=== PATIENT | female | born 1990 | race Caucasian/White ===

== ENCOUNTER 2016-08-28 03:21 | Inpatient (IN) | payer MEDICAID ==
[2016-08-28] VITALS (13 sets, daily range): BP systolic 103–145; BP diastolic 60–86; PULSE 72–97; RESP 18; TEMP 97.8–98
[~2016-08-28 03:21] MED LIST: FERR325T PO; PRENTAB60 PO
[2016-08-28] MEDS ORDERED: LACTATED RINGER'S 1000 ML INJ 1,000 ML IV PRN (03:51)
[2016-08-28] MEDS ORDERED: LACTATED RINGER'S 1000 ML INJ 1,000 ML IV SCH (03:51)
--- NOTE | 2016-08-28 03:59 | PD ---
HPI Chief Complaint Contractions Date Seen: Aug 28, 2016 Travel History International Travel<30 Days: No Contact w/Intl Traveler<30Days: No History of Present Illness HPI Ms. Gates is a [address] Chiang at ~39 2/7 weeks GA (DAVID 2016) who presented with complaint of contractions. Patient states that her contractions began at approximately 1 AM; she denies vaginal bleeding or loss of vaginal fluid. Patient states that contractions quickly intensified, that she currently rates her pain with contractions at 20/10 in severity. Patient reports contractions occurring every 3-5 minutes. Patient denies other symptoms such as shortness of breath, chest pain, nausea/vomiting, dysuria, calf pain/swelling. Per review of records, patient is GBS negative. Patient with recent anemia on 08/21 labs: Hemoglobin 7.4. Patient with recent elevated urine protein/ creatinine ratio. Patient with elevated 1 hour O'[place] testing; 3 hour glucose test was not obtained Para: 2 : 5 History Past Medical History Narrative Medical Anemia during Gestational hypertension with prior gestation Obstetric History Obstetric History Past Surgical History Surgical History: No Previous Surgery Family History Family History: Negative Social History Alcohol Use: No Tobacco Use: No Substance Abuse: No Allergies-Medications (Allergen,Severity, Reaction): Coded Allergies: No Known Allergies (Unverified , 08/25/16) Home Meds Active Scripts Ferrous Sulfate 325 Mg [id number] Mg PO BID #60 TAB Ref 3 Prov:Luisito Chiang MD R2 07/14/16 Vit W/ Docusate-Fe Fu ( 19)1 Tab Tab1 Tab PO DAILY #90 TAB Prov:Luisito Chiang MD R2 06/17/16 Review of Systems General / Constitutional: No: Fever, Chills HENT: No: Headaches Cardiovascular: No: Chest Pain or Discomfort Respiratory: No: Short of Breath Gastrointestinal: No: Nausea, Vomiting Genitourinary: No: Urgency, Dysuria Physical Exam HR 111 Respiratory 18 Temp 98.1 BP 106/47 Narrative GENERAL: Well-nourished, well-developed patient. SKIN: Warm and dry. HEAD: Normocephalic and atraumatic. EYES: No scleral icterus. No injection or drainage. ENT: No nasal drainage noted. Mucous membranes pink. Airway patent. NECK: Supple, trachea midline. No JVD. CARDIOVASCULAR: Regular rate and rhythm without murmurs RESPIRATORY: Breath sounds equal bilaterally. No accessory muscle use. ABDOMEN/GI: Abdomen soft, non-tender, bowel sounds present, no rebound, no guarding Gravid EXTREMITIES: No cyanosis or edema. NEUROLOGICAL: Awake and alert. Motor and sensory function grossly within normal limits. GENITOURINARY: External Genitalia: intact and normal in appearance Cervix: Dilatation: 8 Effacement: 100% Station: 0 Presentation: V Membranes: Intact Uterine Contractions: Y q2min FHT's: Category: 1 Baseline: 150 Reactive: Y Variability: Moderate Decels: None Data Data Orders Ob (2e) Additional Admit Info (08/28/16 03:51) Admit To Inpatient (08/28/16 ) Vital Signs (Adult) .Per protocol (08/28/16 03:51) ^ Heart (08/28/16 03:51) ^ Amnioinfusion (08/28/16 03:51) Diet Npo (08/28/16 Breakfast) Lactated Ringer's 1000 Ml Inj (Lr 1000 M (08/28/16 03:51) Lactated Ringer's 1000 Ml Inj (Lr 1000 M (08/28/16 03:51) Sodium Chlorid 0.9% 500 Ml Inj (Ns 500 M (08/28/16 04:00) Sodium Chlor 0.9% 1000 Ml Inj (Ns 1000 M (08/28/16 04:11) Lidocaine 1% Inj (50 Ml) (Xylocaine 1% I (08/28/16 04:00) Citric Acid-Sodium Citrate Liq (Bicitra (08/28/16 04:00) Fentanyl Inj (Fentanyl Inj) (08/28/16 04:00) Fentanyl Inj (Fentanyl Inj) (08/28/16 04:00) Complete Blood Count With Diff (08/28/16 03:51) Hold Clot (08/28/16 03:51) Abo/Rh Blood Type (08/28/16 03:51) Urinalysis - C+S If Indicated (08/28/16 03:51) Resp Oxygen Non Rebreathe Mask (08/28/16 ) ^ Epidural / Intrathecal Infus (08/28/16 03:51) Oxytocin 30 Units-500ml Premix (Pitocin (08/28/16 04:00) Lidocaine 1% Inj (50 Ml) (Xylocaine 1% I (08/28/16 04:00) Light Mineral Oil (Muri-Lube Oil) (08/28/16 04:00) Inpatient Certification (08/28/16 ) MDM Medical Record Reviewed: Yes Narrative Course / MDM [address] Chiang at ~39 2/7 weeks GA (DAVID 09/02/2016) Assessment: Category 1 rhythm Cervix 8/100% effaced Contractions every 2 minutes history: Anemia, elevated protein/creatinine ratio, hyperglycemia GBS negative Plan: We'll admit for labor Start LR Continue EFM Obtain UA, CBC, blood typing We'll obtain post delivery CBC due to gestational anemia of Hgb 7.4 Refugio Malhotra MD R2 Aug 28, 2016 03:59
[2016-08-28] MEDS ORDERED: OXYTOCIN 30 UNITS-500ML PREMIX 500 ML IV ONE ×2 (04:00→05:00)
[2016-08-28] MEDS ORDERED: LIDOCAINE HCL 1% 50 ML VIAL INFIL PRN (04:00)
[2016-08-28] MEDS ORDERED: SODIUM CHLORID 0.9% 500 ML INJ 500 ML IV PRN (04:00)
[2016-08-28] MEDS ORDERED: MINERAL OIL 10 ML VIAL TOPICAL PRN (04:00)
[2016-08-28] MEDS ORDERED: LIDOCAINE HCL 1% 50 ML VIAL I-DERMAL PRN (04:00)
[2016-08-28] MEDS ORDERED: CITRIC ACID-SODIUM CITRATE LIQ 30 ML UDC PO SCH (04:00)
--- NOTE | 2016-08-28 04:01 | PD ---
HPI Chief Complaint Contractions Date Seen: Aug 28, 2016 Travel History International Travel<30 Days: No Contact w/Intl Traveler<30Days: No Known Affected Area: No History of Present Illness HPI Spaces 26-year-old white female a to 39 weeks presents complaining of contractions she is a family practice patient of Dr. rogers no bleeding or ruptured membranes, heart rate tracing reactive she is deon every 2 minutes membranes intact Para: 2 : 5 Last Menstrual Period: Aug 28, 2016 History Obstetric History Obstetric History 2 vaginal deliveries to ABs Social History Alcohol Use: No Tobacco Use: No Substance Abuse: No Allergies-Medications (Allergen,Severity, Reaction): Coded Allergies: No Known Allergies (Unverified , 08/25/16) Home Meds Active Scripts Ferrous Sulfate 325 Mg [id number] Mg PO BID #60 TAB Ref 3 Prov:Luisito Chiang MD R2 07/14/16 Vit W/ Docusate-Fe Fu ( 19)1 Tab Tab1 Tab PO DAILY #90 TAB Prov:Luisito Chiang MD R2 06/17/16 Review of Systems General / Constitutional: No: Fever, Weight Gain, Chills, Other Eyes: No: Diploplia, Blurred Vision, Visual changes, Pain, Photophobia HENT: No: Headaches, Vertigo, Lightheadedness Cardiovascular: No: Irregular Rhythm, Chest Pain or Discomfort, Palpitations, Tachycardia, Syncope, Varicosities, Edema, Cyanosis Respiratory: No: Cough, Short of Breath, Other Gastrointestinal: No: Nausea, Vomiting, Diarrhea Genitourinary: No: Decreased Urinary Output, Oliguria Musculoskeletal: No: Limited ROM, Weakness, Cramping, Edema, Pain Skin: No Rash, No Itching, No Dryness, No Lumps, No Change in Pigmentation, No Change in Nails, No Alopecia, No Lesions Neurologic: No: Weakness, Dizziness, Syncope, Focal Abnormalities, Coordination Problem, Headache, Slurred Speech, Seizures Psychiatric: No: Depression, Suicidal Ideations, Homicidal Ideation Endocrine: No: Heat Intolerance, Cold Intolerance, Polydipsia, Polyuria, Other Physical Exam Narrative GENERAL: Well-nourished, well-developed patient. SKIN: Warm and dry. HEAD: Normocephalic and atraumatic. EYES: No scleral icterus. No injection or drainage. ENT: No nasal drainage noted. Mucous membranes pink. Airway patent. NECK: Supple, trachea midline. No JVD. CARDIOVASCULAR: Regular rate and rhythm without murmurs, gallops, or rubs. RESPIRATORY: Breath sounds equal bilaterally. No accessory muscle use. BREASTS: Bilateral exam showed no masses , no retractions, no nipple discharge. ABDOMEN/GI: Abdomen soft, non-tender, bowel sounds present, no rebound, no guarding Gravid to [39-] weeks size Fundal Height: [39-] GENITOURINARY: External Genitalia: intact and normal in appearance BUS glands: [-] Cervix: [-] Dilatation: [8-] Effacement: [-90] Station: [0-] Presentation: [-vtx] Membranes: [intact ] Uterine Contractions: [reg-] FHT's: Category: [1-] Baseline: 133 Reactive: [yes-] Variability: [mod-] Decels: [-none] EXTREMITIES: No cyanosis or edema. BACK: Nontender without obvious deformity. No CVA tenderness. NEUROLOGICAL: Awake and alert. Motor and sensory grossly within normal limits. Five out of 5 muscle strength in all muscle groups. Normal speech. Data Data Orders Ob (2e) Additional Admit Info (08/28/16 03:51) Admit To Inpatient (08/28/16 ) Vital Signs (Adult) .Per protocol (08/28/16 03:51) ^ Heart (08/28/16 03:51) ^ Amnioinfusion (08/28/16 03:51) Diet Npo (08/28/16 Breakfast) Lactated Ringer's 1000 Ml Inj (Lr 1000 M (08/28/16 03:51) Lactated Ringer's 1000 Ml Inj (Lr 1000 M (08/28/16 03:51) Sodium Chlorid 0.9% 500 Ml Inj (Ns 500 M (08/28/16 04:00) Sodium Chlor 0.9% 1000 Ml Inj (Ns 1000 M (08/28/16 04:11) Lidocaine 1% Inj (50 Ml) (Xylocaine 1% I (08/28/16 04:00) Citric Acid-Sodium Citrate Liq (Bicitra (08/28/16 04:00) Fentanyl Inj (Fentanyl Inj) (08/28/16 04:00) Fentanyl Inj (Fentanyl Inj) (08/28/16 04:00) Complete Blood Count With Diff (08/28/16 03:51) Hold Clot (08/28/16 03:51) Abo/Rh Blood Type (08/28/16 03:51) Urinalysis - C+S If Indicated (08/28/16 03:51) Resp Oxygen Non Rebreathe Mask (08/28/16 ) ^ Epidural / Intrathecal Infus (08/28/16 03:51) Oxytocin 30 Units-500ml Premix (Pitocin (08/28/16 04:00) Lidocaine 1% Inj (50 Ml) (Xylocaine 1% I (08/28/16 04:00) Light Mineral Oil (Muri-Lube Oil) (08/28/16 04:00) Inpatient Certification (08/28/16 ) MDM Interpretation(s) 26-year-old white female A2 at 39 weeks with regular contractions active labor no rupture the membranes no bleeding patient's family practice patient of Dr. Luisito Chiang Plan Plan is admission labor management and anticipate vaginal delivery and rather precipitous fashion Diagnosis Diagnosis: Primary Impression: Precipitate labor, antepartum Condition: Stable Santy Alvarenga II, MD Aug 28, 2016 04:01
[2016-08-28 04:06] LABS: AUTOMATED NEUTROPHIL # 8.4 TH/MM3 (1.8-7.7); BASOPHIL % 0.2 % (0.0-2.0); EOSINOPHIL # 0.1 TH/MM3 (0-0.4); EOSINOPHIL % 0.8 % (0.0-4.0); HEMATOCRIT 23.6 % (35.0-46.0); LYMPH % 17.8 % (9.0-44.0); LYMPHOCYTE # 2.1 TH/MM3 (1.0-4.8); MEAN CELL VOLUME 61.9 FL (80.0-100.0); MEAN CORPUSCULAR HEMOGLOBIN 19.3 PG (27.0-34.0); MEAN CORPUSCULAR HGB CONC 31.2 % (32.0-36.0); NEUT % 72.2 % (16.0-70.0); PLATELET COUNT 195 TH/MM3 (150-450); RED BLOOD COUNT 3.82 MIL/MM3 (4.00-5.30); RED CELL DISTRIBUTION WIDTH 18.7 % (11.6-17.2); WHITE BLOOD COUNT 11.6 TH/MM3 (4.0-11.0)
[2016-08-28 04:09] LABS: HEMO FLAGS AUTO DIFF
[2016-08-28] MEDS ORDERED: SODIUM CHLOR 0.9% 1000 ML INJ 1,000 ML IV PRN (04:11)
--- NOTE | 2016-08-28 04:29 | PD.LABORPN ---
Subjective Subjective OB attending delivery note This patient to multiparous patient at 39 weeks delivered over an intact perineum a macrosomic male infant 4850 g 8/ 9, placenta delivered spontaneously intact delivery performed by the family physician did a good job there were no complications EBL 200 cc, mother and baby doing well Objective Objective Santy Alvarenga II, MD Aug 28, 2016 04:29
[2016-08-28] MEDS ORDERED: MISOPROSTOL 200 MCG TAB ONE (04:33)
[2016-08-28 04:35] LABS: BACTERIA, URINE RARE /hpf; BLOOD, URINE SMALL (NEG); GLUCOSE,URINE NEG (NEG); KETONE, URINE NEG (NEG); MUCUS URINE FEW /lpf (OCC); NITRITE,URINE NEG (NEG); PH, URINE 6.5 (5.0-8.5); RENAL EPITHELIAL CELLS 1 /hpf; SQUAMOUS EPITHELIAL CELL URINE 14 /hpf (0-5); TRANSITIONAL EPI CELLS, URINE <1 /hpf; URINE COLOR YELLOW (YELLW/STRAW)
[2016-08-28 04:36] LABS: COMMENT (UR) CULTURE INDICATED; CULTURE IF INDICATED CULTURE INDICATED
[2016-08-28 04:43] LABS: BLOOD GAS BASE EXCESS 1.2 mmol/L (-2-2); BLOOD GAS O2 HGB SATURATION 9 % (90-100); CORD BLOOD GAS HCO3 28 mmol/L (21-29); CORD BLOOD GAS PCO2 70 mmHg (34-78); CORD BLOOD GAS PH 7.23 (7.14-7.42); CORD BLOOD GAS PO2 9 mmHG
[2016-08-28 04:44] LABS: DRAW SITE CORD BLOOD; STAT YES
--- NOTE | 2016-08-28 04:48 | PD.OB.DELI ---
Anesthesia: None Episiotomy: None Vaginal Delivery: Normal Presentation: Occiput anterior Nuchal Cord: None Delayed cord clamping (45 sec): Yes Shoulder Dystocia: Suprapubic pressure given, Jailene maneuver done Infant: Male One Minute : 8 Five Minute : 9 Infant Care: Suctioned, Spontaneous crying, Responded to stimulation, Blow-by O2 delivered Placenta: Spontaneous delivery, Intact, Cord pH (Cord pH from cord section was 7.23 ) Laceration: No lacerations Additional Information Mei is a healthy 26 y/o G3 now P3 with gestational diabetes mellitus, failing her 1-hr GTT. She also had iron deficiency anemia of with a recent hgb of 7.4 during the third trimester. GBS negative. She presented to L&D at 8 cm dilated and deon regularly. The baby was deliver, but needed Jailene maneuver/positioning and Suprapubic pressure. The perineum was intact except for small superficial lacerations at 1 o/clock and on the labia minora at 11 o'clock position. 400 mcg of Cytotec were administered rectally for EBL of 300-400 ml with a slow steady trickle of blood approximately 20-30 minutes after delivery. The uterus was firm and oxytocin was also administered. Weight: 10 lb [address] Alvarenga, and Dr. Malhotra. Luisito Chiang MD R2 Aug 28, 2016 04:48
[2016-08-28] MEDS ORDERED: MISOPROSTOL 200 MCG TAB PR ONE (05:00)
[2016-08-28] MEDS ORDERED: SODIUM CHLORIDE 0.9% FLUSH 5 ML FLUSH IV PRN (05:00)
[2016-08-28] MEDS ORDERED: DOCUSATE SODIUM 50 MG/SENNA 8.6 MG TAB PO PRN (05:00)
[2016-08-28] MEDS ORDERED: WITCH HAZEL 50%/GLYCERIN 12.5% 40 PAD JAR TOPICAL PRN (05:00)
[2016-08-28] MEDS ORDERED: BENZOCAINE 20% TOPICAL SPRAY 60 ML CAN TOPICAL PRN (05:00)
[2016-08-28] MEDS ORDERED: ACETAMINOPHEN 325 MG TAB PO PRN (05:00)
[2016-08-28] MEDS ORDERED: ALUMINUM/MAGNESIUM/SIMETH 30 ML CUP PO PRN (05:00)
[2016-08-28] MEDS ORDERED: ZOLPIDEM TARTRATE 5 MG TAB PO PRN (05:00)
[2016-08-28] MEDS ORDERED: ONDANSETRON ODT 4 MG TAB PO PRN (05:00)
[2016-08-28 05:01] LABS: ACANTHOCYTES OCC (NORMAL); OVALOCYTES 1+ (NORMAL)
[2016-08-28 05:02] LABS: PLATELET ESTIMATE SMEAR NORMAL (NORMAL); PLATELET MORPHOLOGY NORMAL (NORMAL); SCAN/DIFF AUTO DIFF CONFIRMED
[2016-08-28 05:04] LABS: POLYCHROMASIA 2.4 % (0.0-1.9)
[2016-08-28] MEDS ORDERED: SODIUM CHLORIDE 0.9% FLUSH 5 ML FLUSH IV SCH (09:00)
[2016-08-28] MEDS: FERROUS SULFATE 325 MG (65 MG ELEMENTAL IRON) TAB PO SCH ×2 (09:20→20:15)
[2016-08-28] MEDS: IBUPROFEN 600 MG TAB PO PRN ×2 (09:21→15:40)
[2016-08-28 11:56] LABS: AUTOMATED NEUTROPHIL # 11.9 TH/MM3 (1.8-7.7); BASOPHIL # 0.1 TH/MM3 (0-0.2); BASOPHIL % 0.5 % (0.0-2.0); EOSINOPHIL % 0.1 % (0.0-4.0); LYMPHOCYTE # 1.3 TH/MM3 (1.0-4.8); MEAN CELL VOLUME 62.4 FL (80.0-100.0); MEAN CORPUSCULAR HEMOGLOBIN 19.2 PG (27.0-34.0); MEAN CORPUSCULAR HGB CONC 30.7 % (32.0-36.0); MONO % 7.2 % (0.0-8.0); NEUT % 83.2 % (16.0-70.0); PLATELET COUNT 155 TH/MM3 (150-450); RED BLOOD COUNT 3.13 MIL/MM3 (4.00-5.30); RED CELL DISTRIBUTION WIDTH 18.9 % (11.6-17.2); WHITE BLOOD COUNT 14.2 TH/MM3 (4.0-11.0)
[2016-08-28 11:59] LABS: HEMO FLAGS AUTO DIFF
[2016-08-28 12:01] LABS: HEMATOCRIT 19.5 % (35.0-46.0)
[2016-08-28 12:29] LABS: ACANTHOCYTES OCC (NORMAL)
[2016-08-28 12:30] LABS: PLATELET ESTIMATE SMEAR LOW (NORMAL); PLATELET MORPHOLOGY ENLARGED (NORMAL); SCAN/DIFF AUTO DIFF CONFIRMED
--- NOTE | 2016-08-28 12:38 | HHI.OB ---
Subjective Post Day: 0 Remarks Patient CBC notable for H&H 6/19.5 today at approx 11am, a decrease from antepartum H&H (7.4/23.1). She states she has no symptoms, specifically denying headache, CP, SOB, dizziness. She has gotten up and walked around without symptoms. She is without difficulty. VS documented most recently 120/72, pulse 90, afebrile 97.8F. Patient declines the option of blood products at this time. She endorses only light vaginal bleeding. Notably, patient has chronic anemia and took prenatals with iron during the . She had significant anemia with her previous as well. ( Sandra Lyles MD R1) Objective Vitals/I&O Vital Signs Date Time Temp Pulse Resp B/P Pulse Ox O2 Delivery O2 Flow Rate FiO2 08/28/16 09:00 97.8 90 18 120/72 08/28/16 06:00 92 118/61 08/28/16 05:45 72 115/66 08/28/16 05:35 18 08/28/16 05:30 91 136/79 08/28/16 05:16 98.0 18 08/28/16 05:15 86 120/60 08/28/16 05:05 18 08/28/16 05:01 89 123/65 08/28/16 04:45 95 103/86 08/28/16 04:36 97 145/79 Objective Remarks GENERAL: Well-nourished, well-developed female. Minimal conjunctival pallor, CARDIOVASCULAR: Regular rate and rhythm without murmurs, gallops, or rubs. RESPIRATORY: Breath sounds equal bilaterally. No accessory muscle use. ABDOMEN/GI: Abdomen soft, non-tender. Fundus: Firm, non-tender at umbilicus. GENITOURINARY: Light to moderate bleeding. EXTREMITIES: No cyanosis or edema, non-tender, without signs of DVT. Pulse 2+ in extremities. Medications and IVs Current Medications Medications (Trade) Dose Ordered Sig/Buster Route Start Time Stop Time Status Last Admin (NS Flush) 2 ml BID IV 08/28/16 09:00 (NS Flush) 2 ml UNSCH PRN IV 08/28/16 05:00 (Tylenol) 650 mg Q4H PRN PO 08/28/16 05:00 (Motrin) 600 mg Q6H PRN PO 08/28/16 05:00 08/28/16 09:21 (Americaine 20% Top Spr) 1 spray Q4H PRN TOPICAL 08/28/16 05:00 (Tucks Pads) 1 applic QID PRN TOPICAL 08/28/16 05:00 (Sheba-Colace) 2 tab Q12H PRN PO 08/28/16 05:00 08/28/16 09:20 (Ambien) 5 mg HS PRN PO 08/28/16 05:00 (M-M-R Ii Inj) 0.5 ml ONCE ONCE SQ 08/28/16 16:00 08/28/16 16:01 (Boostrix Inj) 0.5 ml ONCE ONCE IM 08/28/16 16:00 08/28/16 16:01 (Mag-Al Plus Susp Liq) 15 ml Q8H PRN PO 08/28/16 05:00 (Zofran Odt) 4 mg Q6H PRN PO 08/28/16 05:00 (Ferrous Sulfate) 325 mg BID PO 08/28/16 09:00 08/28/16 09:20 (Sandra Lyles MD R1) Assessment/Plan Assessment and Plan day #0. H&H 6/19.5 and patient asymptomatic. Patient declines PRBCs at this time given no symptoms. Hemodynamically stable without evidence of significant source of blood loss. Plan: recheck H&H now to monitor if stable. If decreased or if patient becomes symptomatic, will re-address possibility of 1-2 units of PRBCs with patient. SDW Dr. Leonel Sosa (Sandra Lyles MD R1) Attestation Patient very tolerant of anemia. H/o chronic anemia on iron during . Will continue to watch, transfuse if needed. (Martina Sosa MD) Sandra Lyles MD R1 Aug 28, 2016 12:38 Martina Sosa MD Aug 28, 2016 16:41
[2016-08-28 14:09] LABS: HEMATOCRIT 20.9 % (35.0-46.0)
[2016-08-28] MEDS ORDERED: MEASLES, MUMPS, RUBELLA VACCINE 0.5 ML VIAL SQ ONE (16:00)
[2016-08-28] MEDS ORDERED: DIPHTH/TETANUS/ACEL PERTUSSIS (BOOSTER) 0.5 ML VIAL/PFS IM ONE (16:00)
[2016-08-28 20:12] LABS: REVIEW FLAG FINAL
[2016-08-28 20:15] LABS: HEMATOCRIT 19.1 % (35.0-46.0)
[2016-08-29 05:14] LABS: MEAN CELL VOLUME 62.7 FL (80.0-100.0); MEAN CORPUSCULAR HEMOGLOBIN 18.9 PG (27.0-34.0); MEAN CORPUSCULAR HGB CONC 30.2 % (32.0-36.0); PLATELET COUNT 156 TH/MM3 (150-450); RED BLOOD COUNT 3.27 MIL/MM3 (4.00-5.30); RED CELL DISTRIBUTION WIDTH 19.1 % (11.6-17.2); WHITE BLOOD COUNT 11.7 TH/MM3 (4.0-11.0)
[2016-08-29 05:24] LABS: REVIEW FLAG FINAL
[2016-08-29 05:29] LABS: HEMATOCRIT 20.5 % (35.0-46.0)
[2016-08-29 08:00] VITALS: BP 119/70; PULSE 91; RESP 18; TEMP 98.1
--- NOTE | 2016-08-29 08:42 | HHI.OB ---
Subjective Post Day: 1 Remarks 26 y/o G3 now P3, delivered at 39.2 weeks gestation via . complicated by GDM, and iron deficiency anemia. Overall she is feeling well. Denies SOB or chest pain. Walking without difficulty. Breast feeding without difficulty. Bleeding is "light" ----- less than period with no clots. (Luisito Chiang MD R2) Objective Vitals/I&O Vital Signs Date Time Temp Pulse Resp B/P Pulse Ox O2 Delivery O2 Flow Rate FiO2 08/28/16 18:25 18 08/28/16 15:15 18 08/28/16 09:00 97.8 90 18 120/72 Objective Remarks GENERAL: Well-nourished, well-developed female. Minimal conjunctival pallor, CARDIOVASCULAR: Regular rate and rhythm without murmurs, gallops, or rubs. RESPIRATORY: Breath sounds equal bilaterally. No accessory muscle use. ABDOMEN/GI: Abdomen soft, non-tender. Fundus: Firm, non-tender at umbilicus. GENITOURINARY: Light to moderate bleeding. EXTREMITIES: No cyanosis or edema, non-tender, without signs of DVT. Pulse 2+ in extremities. Medications and IVs Current Medications Medications (Trade) Dose Ordered Sig/Buster Route Start Time Stop Time Status Last Admin (NS Flush) 2 ml BID IV 08/28/16 09:00 08/28/16 20:15 (NS Flush) 2 ml UNSCH PRN IV 08/28/16 05:00 (Tylenol) 650 mg Q4H PRN PO 08/28/16 05:00 (Motrin) 600 mg Q6H PRN PO 08/28/16 05:00 08/28/16 15:40 (Americaine 20% Top Spr) 1 spray Q4H PRN TOPICAL 08/28/16 05:00 (Tucks Pads) 1 applic QID PRN TOPICAL 08/28/16 05:00 (Sheba-Colace) 2 tab Q12H PRN PO 08/28/16 05:00 08/28/16 09:20 (Ambien) 5 mg HS PRN PO 08/28/16 05:00 (Mag-Al Plus Susp Liq) 15 ml Q8H PRN PO 08/28/16 05:00 (Zofran Odt) 4 mg Q6H PRN PO 08/28/16 05:00 (Ferrous Sulfate) 325 mg BID PO 08/28/16 09:00 08/28/16 20:15 (Luisito Chiang MD R2) Assessment/Plan Problem List: (1) Vaginal delivery Assessment and Plan day #1 . H&H stable at 6.2/19.5 and patient asymptomatic. Patient declines PRBCs at this time given no symptoms. Hemodynamically stable without evidence of significant source of blood loss. - AFVSS - Continue routine care - Motrin PRN pain - Encourage OOB - Pelvic rest x 6 wks - Contraception: Perfers Depo. - Anticipate D/C today 08/29/2016. dw Dr. Sosa (Luisito Chiang MD R2) Collaborating MD Comments Patient with h/o chronic anemia during . Currently anemic but stable blood counts since yesterday and is asymptomatic. Agree with observation rather than transfusion at this time (Martina Sosa MD) Luisito Chiang MD R2 Aug 29, 2016 08:42 Martina Sosa MD Sep 02, 2016 11:40
[2016-08-29] MEDS ORDERED: IBUP-232 PO (09:00)
[2016-08-29] MEDS ORDERED: SENN1TAB PO (09:00)
--- NOTE | 2016-08-29 09:02 | HHI.DCPOC ---
Discharge Care Plan Diagnosis: (1) Intrauterine normal (2) Vaginal delivery (3) Anemia affecting Report Symptoms to Your Doctor -Temperate above 100.5 degrees -Redness, of incision or excessive or foul smelling drainage -Unusual pain or calf pain -Increased vaginal bleeding -Painful or difficulty urinating -Feelings of extreme sadness or anxiety after 2 weeks Goals to Promote Your Health * To prevent worsening of your condition and complications * To maintain your health at the optimal level Directions to Meet Your Goals Take your medications as prescribed Follow your dietary instruction Follow activity as directed Ensure plenty of rest for recovery Drink fluids for hydration Keep your appointments as scheduled Take your immunizations and boosters as scheduled If your symptoms worsen call your PCP, if no PCP go to Urgent Care Center or Emergency Room Smoking is Dangerous to Your Health. Avoid second hand smoke Call the 24-hour crisis hotline for domestic abuse at Luisito Chiang MD R2 Aug 29, 2016 09:01
[2016-08-29] MEDS: FERROUS SULFATE 325 MG (65 MG ELEMENTAL IRON) TAB PO SCH (09:20)
== END 2016-08-29 14:00 | disposition home or self-care (01) | DRG 775 ==
LOC: HOBED 03:21 → H2EA 03:52 → H1EA 08:30
PROVIDERS: ADMIT Obstetrics & Gynecology Maternal & Fetal Medicine; ATTEND Obstetrics & Gynecology Maternal & Fetal Medicine
PROC: 10E0XZZ Delivery of Products of Conception, External Approach (ICD-10-PCS; principal; 2016-08-28)
DX: O62.3 Precipitate labor (principal); O24.429 Gestational diabetes mellitus in childbirth, unspecified control; D50.9 Iron deficiency anemia, unspecified; O99.02 Anemia complicating childbirth; O36.63X0 Maternal care for excessive fetal growth, third trimester, not applicable or unspecified; O66.0 Obstructed labor due to shoulder dystocia; O70.0 First degree perineal laceration during delivery; Z3A.39 39 weeks gestation of pregnancy; Z37.0 Single live birth
CPT/HCPCS: 59025; 81001; 82805; 85014; 85018; 85025; 85027; 87086; 99285

== ENCOUNTER → 2017-11-10 | Outpatient (CLI) | payer MEDICAID ==
[~2017-11-10] MED LIST changes: +IBUP-232 PO; +SENN1TAB PO
== END ==
LOC: HPND 12:36
PROVIDERS: ATTEND Family Medicine
DX: Z36.82 Encounter for antenatal screening for nuchal translucency (principal)
CPT/HCPCS: 36415; 76813

== ENCOUNTER → 2017-12-16 | Outpatient (CLI) | payer MEDICAID | LOC: HPND 10:37 | PROVIDERS: ATTEND Family Medicine | DX: Z36.3 Encounter for antenatal screening for malformations (principal) | CPT/HCPCS: 76805 ==

== ENCOUNTER 2018-05-17 07:56 | Inpatient (IN) ==
--- NOTE | 2018-05-17 08:47 | ED ---
History of Present Illness Primary Care Physician: Rosalia Escalona MD Chief Complaint: contractions History of Present Illness: 28 yr old female at 40/5 WGA presenting to ED with contractions that started this morning at 5 am. Pt is feeling baby move well, no gush of fluid, no bleeding but minimal spotting, regular contractions. No complications during this . No history of smoking, or drinking. No medical conditions or medications. Mom would like an epidural if pain increases. GBS status negative per mom. Review of Systems Constitutional: Denies fever(s) Ears, Nose, Mouth, and Throat: Denies headache(s) Cardiovascular: Denies chest pain, Denies shortness of breath Gastrointestinal: Denies abdominal pain Genitourinary: Reports other (Contractions) PMFSH - Medical / Surgical Hx Neg / Unobtainable Medical Problems Denied: Yes Surgical History: No Previous Surgery - Social History I have reviewed the patient's Social History: Yes - Tobacco History Second Hand Smoke Exposure: No Tobacco Use In Past 30 Days: No Smoking Status: Never smoker - Alcohol History How Often Do You Have a Drink Containing Alcohol: Never - Substance Use History Substance History: No History of Abuse Medications and Allergies Allergies Allergy/AdvReac Type Severity Reaction Status Date / Time No Known Allergies Allergy Uncoded 08/25/16 15:16 Home Medications Medication Instructions Recorded Confirmed Type PO DAILY 05/17/18 History Exam Vital signs: Vital Signs 05/17/18 08:30 Temperature 98.4 F Pulse Rate 89 Respiratory Rate 18 Blood Pressure 134/79 Narrative: GENERAL: Well-nourished, well-developed patient. SKIN: Warm and dry. HEAD: Normocephalic and atraumatic. EYES: No scleral icterus. No injection or drainage. ENT: No nasal drainage noted. Mucous membranes pink. Airway patent. CARDIOVASCULAR: Regular rate and rhythm without murmurs, gallops, or rubs. RESPIRATORY: Breath sounds equal bilaterally. No accessory muscle use. ABDOMEN/GI: Abdomen soft, non-tender, bowel sounds present, no rebound, no guarding GENITOURINARY: External Genitalia: intact and normal in appearance Cervix: anterior Dilatation: 3-4 cm Effacement: 80% Station: -3 Presentation: vertex Membranes: intact Uterine Contractions: present FHT's: Category: 1 Baseline: 155 Reactive: yes Variability: present Decels: absent EXTREMITIES: No cyanosis or edema. BACK: Nontender without obvious deformity. No CVA tenderness. NEUROLOGICAL: Awake and alert. Normal speech. Results - Labs CBC & Chem 7: 05/17/18 08:55 Assessment and Plan - Diagnosis (1) Third trimester Code(s): Z34.93 - Encounter for supervision of normal , unspecified, third trimester Status: Acute - Plan 28 yr at 40/5 WGA presenting w/ contractions. Plan: Cervix 3-4/80/-2 Unsure of epidural GBS negative uncomplicated - Admit to L&D - Anticipate vaginal delivery - Attending Attestation The exam, history, and the medical decision-making described in the above note were completed with the assistance of the resident physician. I reviewed and agree with the findings presented. I attest that I had a [id number] encounter with the patient on the same day, and personally performed and documented my assessment and findings in the medical record. Visibly uncomfortable contractions in term multip SOOL FHT cat I initial SVE by nursing staff Wants to try without epidural. GBS-, no other complications Will admit for labor management. Discharge Plan - Physicians Team Primary Care Provider: Rosalia Escalona Attending Provider: Luisito Chiang
[2018-05-17] MEDS ORDERED: Oxytocin 30 Units/500ml Premix 30 UNITS/500 ML BAG IV.SIG ONE (08:48)
[2018-05-17] MEDS ORDERED: Naloxone Inj 0.4 MG/ML Vial IV.PUSH PRN ×2 (08:48→11:15)
[2018-05-17] MEDS ORDERED: fentaNYL Citrate Inj 100 MCG/2 ML Ampul IV.PUSH PRN ×2 (08:48)
[2018-05-17] MEDS ORDERED: Sod Chloride 0.9% Inj 1,000 ML IV.CONT PRN (08:48)
[2018-05-17] MEDS ORDERED: Sodium Chlor 0.9% Inj 500 ML IV.SIG PRN (08:48)
[2018-05-17] MEDS ORDERED: Citric Acid/Sodium Citrate Liq 30 ML UDC PO SCH (09:00)
--- NOTE | 2018-05-17 09:08 | P.HPOB ---
Patient Name: Rosina Gates Date of : 89 Patient Status: Emergency Emergency Provider: DaphneTatyana Date: 05/17/18 08:47 Initialization Date: 05/17/18 08:47 History of Present Illness Primary Care Physician: Rosalia Escalona MD Chief Complaint: contractions History of Present Illness: 28 yr old female at 40/5 WGA presenting to ED with contractions that started this morning at 5 am. Pt is feeling baby move well, no gush of fluid, no bleeding but minimal spotting, regular contractions. No complications during this . No history of smoking, or drinking. No medical conditions or medications. Mom would like an epidural if pain increases. GBS status negative per mom. Review of Systems Constitutional: Denies fever(s) Ears, Nose, Mouth, and Throat: Denies headache(s) Cardiovascular: Denies chest pain, Denies shortness of breath Gastrointestinal: Denies abdominal pain Genitourinary: Reports other (Contractions) PMFSH - Medical / Surgical Hx Neg / Unobtainable Medical Problems Denied: Yes Surgical History: No Previous Surgery - Social History I have reviewed the patient's Social History: Yes - Tobacco History Second Hand Smoke Exposure: No Tobacco Use In Past 30 Days: No Smoking Status: Never smoker - Alcohol History How Often Do You Have a Drink Containing Alcohol: Never - Substance Use History Substance History: No History of Abuse Medications and Allergies Allergies Allergy/AdvReac Type Severity Reaction Status Date / Time No Known Allergies Allergy Uncoded 08/25/16 15:16 Home Medications Medication Instructions Recorded Confirmed Type PO DAILY 05/17/18 History Exam Vital signs: Vital Signs 05/17/18 08:30 Temperature 98.4 F Pulse Rate 89 Respiratory Rate 18 Blood Pressure 134/79 Narrative: GENERAL: Well-nourished, well-developed patient. SKIN: Warm and dry. HEAD: Normocephalic and atraumatic. EYES: No scleral icterus. No injection or drainage. ENT: No nasal drainage noted. Mucous membranes pink. Airway patent. CARDIOVASCULAR: Regular rate and rhythm without murmurs, gallops, or rubs. RESPIRATORY: Breath sounds equal bilaterally. No accessory muscle use. ABDOMEN/GI: Abdomen soft, non-tender, bowel sounds present, no rebound, no guarding GENITOURINARY: External Genitalia: intact and normal in appearance Cervix: anterior Dilatation: 3-4 cm Effacement: 80% Station: -3 Presentation: vertex Membranes: intact Uterine Contractions: present FHT's: Category: 1 Baseline: 155 Reactive: yes Variability: present Decels: absent EXTREMITIES: No cyanosis or edema. BACK: Nontender without obvious deformity. No CVA tenderness. NEUROLOGICAL: Awake and alert. Normal speech. Assessment and Plan - Diagnosis (1) Third trimester Code(s): Z34.93 - Encounter for supervision of normal , unspecified, third trimester Status: Acute - Plan 28 yr at 40/5 WGA presenting w/ contractions. Plan: Cervix 3-4/80/-2 Unsure of epidural GBS negative uncomplicated - Admit to L&D - Anticipate vaginal delivery
--- NOTE | 2018-05-17 09:35 | P.HPOB ---
History of Present Illness Service: Rosina is a very pleasant 28-year-old female, who is a , presenting at 40.5 weeks gestation. She presents to OB ED after waking up with severe contractions q 5-6 minutes at 0500 on 05/17/2018. She has been having periodic contractions throughout the week, but nothing of this intensity. Otherwise, feeling well. No gush of fluid still with good FM. Denies any vaginal bleeding. Trying to avoid epidural during her delivery. Primary Care Physician: Rosalia Escalona MD Chief Complaint: contractions PMFSH - Medical / Surgical Hx Neg / Unobtainable Medical Problems Denied: Yes - Medical History Medical History: Medical History (Last Updated 05/17/18 @ 10:12 by Luisito Chiang MD) Anemia - Tobacco History Second Hand Smoke Exposure: No Tobacco Use In Past 30 Days: No Smoking Status: Never smoker - Alcohol History How Often Do You Have a Drink Containing Alcohol: Never - Substance Use History Substance History: No History of Abuse Medications and Allergies Active Medications: Active Medications Citric Acid/Sodium Citrate (Sodium Citrate/Citric Acid Liq) 30 ml PO [employer] [facility] Stop: 05/21/18 08:59 Fentanyl Citrate (Fentanyl Inj) 50 mcg IV.PUSH Q1H PRN PRN Reason: Pain Scale 3 - 5 Fentanyl Citrate (Fentanyl Inj) 100 mcg IV.PUSH Q1H PRN PRN Reason: PAIN SCALE 6 TO 10 Lactated Ringer's (Lr 1000 Ml Inj) 1,000 mls @ 125 mls/hr IV.CONT .Q8H FRANCIS Lactated Ringer's (Lr 1000 Ml Inj) 1,000 mls @ 3,000 mls/hr IV.SIG UNSCH PRN PRN Reason: compromise or epidural Last Admin: 05/17/18 09:06 Dose: 3,000 mls/hr Sodium Chloride (Ns Inj) 500 mls @ 1,000 mls/hr IV.SIG UNSCH PRN PRN Reason: SEE LABEL COMMENTS Sodium Chloride (Ns Inj) 1,000 mls @ 100 mls/hr IV.CONT .Q10H PRN PRN Reason: SEE LABEL COMMENTS Lidocaine HCl (Xylocaine 1% Inj) 0.1 ml I-DERMAL PRN PRN PRN Reason: For IV start Stop: 05/20/18 08:47 Lidocaine HCl (Xylocaine 1% Inj) 10 ml INFILTRATN PRN PRN PRN Reason: For episiotomy repair Stop: 05/19/18 08:47 Mineral Oil (Muri-Lube Oil) 10 ml TOPICAL PRN PRN PRN Reason: PRN perineal massage Naloxone HCl (Narcan Inj) 0.1 mg IV.PUSH Q2M PRN PRN Reason: for opiate reversal Allergies Allergy/AdvReac Type Severity Reaction Status Date / Time No Known Allergies Allergy Uncoded 08/25/16 15:16 Home Medications Medication Instructions Recorded Confirmed Type PO DAILY 05/17/18 History Exam Vital signs: Vital Signs 05/17/18 08:30 Temperature 98.4 F Pulse Rate 89 Respiratory Rate 18 Blood Pressure 134/79 Intake & Output 05/16/18 05/17/18 05/17/18 18:59 06:59 18:59 Weight 75.75 kg Cervix: 8 cm, 80% effaced, -2 station - Constitutional no acute distress, cooperative - Routine HEENT Exam Head: Present: normocephalic, atraumatic Eye: Present: EOMI ENT: Present: mucous membranes moist, nares patent - Routine Neck Exam Present: full ROM - Routine Respiratory Exam Absent: accessory muscle use - Routine Cardiovascular Exam Present: RRR. Absent: JVD - Routine Exam Comments: 7-8 cm dilated 80% effaced -2 station, vertex. Ab consistent with 40 weeks gestation. - Routine Skin Exam Present: intact, dry, warm - Routine Neurological Exam Present: alert, oriented X3, CN II-XII intact Results - Labs CBC & Chem 7: 05/17/18 08:55 Caprini VTE Risk Assessment Caprini VTE Risk Assessment: No/Low Risk (score <= 1) (SCDs post delivery) Caprini Risk Assessment Model: Point Value = 1 Point Value = 2 Point Value = 3 Point Value = 5 Age 41-60 Minor surgery BMI > 25 kg/m2 Swollen legs Varicose veins or History of unexplained or recurrent spontaneous Oral contraceptives or hormone replacement Sepsis (< 1 month) Serious lung disease, including pneumonia (< 1 month) Abnormal pulmonary function Acute myocardial infarction Congestive heart failure (< 1 month) History of inflammatory bowel disease Medical patient at bed rest Age 61-74 Arthroscopic surgery Major open surgery (> 45 min) Laparoscopic surgery (> 45 min) Malignancy Confined to bed (> 72 hours) Immobilizing plaster cast Central venous access Age >= 75 History of VTE Family history of VTE Factor V Leiden Prothrombin [id number] Lupus anticoagulant Anticardiolipin antibodies Elevated serum homocysteine Heparin-induced thrombocytopenia Other congenital or acquired thrombophilia Stroke (< 1 month) Elective arthroplasty Hip, pelvis, or leg fracture Acute spinal cord injury (< 1 month) Prophylaxis Regimen: Total Risk Factor Score Risk Level Prophylaxis Regimen 0-1 Low Early ambulation 2 Moderate Order ONE of the following: *Sequential Compression Device (SCD) *Heparin 5000 units SQ BID 3-4 Higher Order ONE of the following medications: *Heparin 5000 units SQ TID *Enoxaparin/Lovenox 40 mg SQ daily (WT < 150 kg, CrCl > 30 mL/min) *Enoxaparin/Lovenox 30 mg SQ daily (WT < 150 kg, CrCl > 10-29 mL/min) *Enoxaparin/Lovenox 30 mg SQ BID (WT < 150 kg, CrCl > 30 mL/min) AND/OR *Sequential Compression Device (SCD) 5 or more Highest Order ONE of the following medications: *Heparin 5000 units SQ TID (Preferred with Epidurals) *Enoxaparin/Lovenox 40 mg SQ daily (WT < 150 kg, CrCl > 30 mL/min) *Enoxaparin/Lovenox 30 mg SQ daily (WT < 150 kg, CrCl > 10-29 mL/min) *Enoxaparin/Lovenox 30 mg SQ BID (WT < 150 kg, CrCl > 30 mL/min) AND *Sequential Compression Device (SCD) Assessment and Plan - Diagnosis (1) Third trimester Code(s): Z34.93 - Encounter for supervision of normal , unspecified, third trimester Status: Acute - Plan Continue with routine care. IVF running. GBS negative. Cervix 7-8 cm, 80% effaced, -2 station at 09:10 on check. Does not want epidural. VS at goal, FHT Category one Baseline 150, mod variability, +Accels. Nolan q 4-5 minutes regularly. Will do delayed cord clamping during delivery. Delivery to be assisted by Dr. Hugh Owens.
[2018-05-17 10:07] LABS: Baso % (Auto) 0.3 % (0.0-2.0); Eos % (Auto) 0.5 % (0.0-4.0); Lymph # (Auto) 1.6 th/mm3 (1.0-4.8); Lymph % (Auto) 16.9 % (9.0-44.0); Mean Corpuscular HGB Conc 33.3 % (32.0-36.0); Mean Corpuscular Hemoglobin 26.3 pg (27.0-34.0); Mean Corpuscular Volume 78.9 fL (80.0-100.0); Mean Platelet Volume 8.3 fL (7.0-11.0); Mono # (Auto) 0.9 th/mm3 (0.0-0.9); Mono % (Auto) 9.2 % (0.0-8.0); Neut # (Auto) 6.8 th/mm3 (1.8-7.7); Neut % (Auto) 73.1 % (16.0-70.0); Platelet Count 162 th/mm3 (150-450); Red Blood Count 4.19 mil/mm3 (4.00-5.30); Red Cell Distribution Width 15.9 % (11.6-17.2); White Blood Count 9.3 th/mm3 (4.0-11.0)
[2018-05-17 10:54] LABS: Lymphocytes 11 % (9-44); Monocytes 7 % (0-8); Platelet Estimate Normal (Normal); Platelet Morphology Normal (Normal); Promyelocyte 1 % (0-0)
[2018-05-17] MEDS ORDERED: Bisacodyl 10 MG Supp RECTAL PRN (11:15)
[2018-05-17] MEDS ORDERED: Benzocaine 20% Top Spray 60 ML Can TOPICAL PRN (11:15)
[2018-05-17] MEDS ORDERED: Witch Hazel 50%/Glyderin 12.5% 40 Pad Jar RECTAL PRN (11:15)
[2018-05-17] MEDS ORDERED: Oxytocin 30 Units/500ml Premix 30 UNITS/500 ML BAG IV.CONT PRN (11:15)
[2018-05-17] MEDS ORDERED: Acetaminophen 325 MG Tablet PO PRN (11:15)
--- NOTE | 2018-05-17 11:21 | P.OBDELI ---
Weeks Gestation: 40 Active Labor Start Date: 05/17/18 Active Labor Start Time: 05:00 Medical Induction of Labor: No Artificial Rupture of Membrane: Yes (clear fluid ) Artificial ROM Date: 05/17/18 Artificial ROM Time: 10:10 Anesthesia: None Episiotomy: none Vaginal Delivery: Normal Presentation: Occiput anterior Nuchal Cord: None Delayed Cord Clamping (45 sec): Yes Shoulder Dystocia: Jailene maneuver done Placenta: Spontaneous delivery, Intact, 3 vessel cord, Cord pH Laceration: None Infant: Female Additional Information: spontaneous vaginal delivery without complication at 40.5 weeks gestation. EBL 250 ml. Placenta intact. Mom and baby doing well. Supervised by Dr. Devi and Dr. Hugh Owens. Addendum: I came directly over after receiving call that she was starting to push but did not make it into delivery room until after delivery. baby being transferred to [facility] on my arrival. I did supervise third stage of labor, there were no perineal tears and no additional hemostasis measures required beyond usual active management. - Hugh Owens
[2018-05-17 11:25] LABS: Bacteria,Urine Few /hpf; Bilirubin,Urine Negative (Negative); Color,Urine Yellow (Yellw/Straw); Glucose,Urine (UA) Negative (Negative); Leukocyte Esterase,Urine Moderate (Negative); Mucus,Urine Few /lpf (Occasional); Nitrite,Urine Negative (Negative); Specific Gravity,Urine 1.008 (1.002-1.035); Squamous Epithelial Cell,Urine 12 /hpf (0-5)
[2018-05-17 11:26] LABS: Amphetamine Urine With Conf Neg (Neg); Benzodiazepine Urine With Conf Neg (Neg); Cocaine Urine With Conf Neg (Neg); Opiates Urine With Conf Neg (Neg)
[2018-05-17 11:27] LABS: Cannabinoid Urine With Conf Neg (Neg); Clarity,Urine Hazy (Clear)
[2018-05-17] MEDS ORDERED: Oxytocin 30 Units/500ml Premix 30 UNITS/500 ML BAG ONE (11:37)
[2018-05-17 14:06] LABS: Rubella IgG Antibody 31.5 IU/mL (10.0-500.0)
[2018-05-17 14:08] LABS: Hepatitits B Surface Antigen Nonreactive (Nonreactive)
[2018-05-17 14:40] LABS: Hepatitis A IgM Antibody Nonreactive (Nonreactive)
[2018-05-17] MEDS ORDERED: Diphtheria/Tetanus/Pertussis Vaccine Inj 0.5 ML Syringe IM ONE (16:00)
[2018-05-17] MEDS ORDERED: Measles/Mumps/Rubella Vaccine Inj 0.5 ML Vial SQ ONE (16:00)
[2018-05-17] MEDS ORDERED: Zolpidem Tartrate 5 MG Tablet PO PRN (21:00)
[2018-05-17] MEDS: Senna/Docusate Sodium 8.6/50 MG Tablet PO SCH (22:04)
--- NOTE | 2018-05-18 08:55 | P.PNOB ---
Subjective Post day: 1 Interval history: Feeling well. Passing gas. Breast feeding without difficulty. No vaginal bleeding. Urinating normally. Not feeling light headed. No questions. Abdominal pain well controlled. NO SOB. Objective Vital Signs/I&O: Vital Signs 05/17/18 09:50 05/17/18 11:19 05/17/18 11:45 Temperature Pulse Rate 89 101 H 81 Respiratory Rate 18 Blood Pressure 131/77 117/78 121/69 05/17/18 12:15 05/17/18 12:45 05/17/18 13:12 Temperature 97.9 F 97.9 F Pulse Rate 81 90 90 Respiratory Rate 20 2 L Blood Pressure 117/72 108/69 108/69 05/17/18 20:00 Temperature 98.1 F Pulse Rate 78 Respiratory Rate 18 Blood Pressure 101/64 Intake & Output 05/17/18 05/18/18 05/18/18 18:59 06:59 18:59 Intake Total 500 / 500 Balance 500 / 500 Weight 75.75 kg Intake: IV 500 / 500 Pitocin 30 Units/NS 500 ml 500 / 500 Premix 30 units In 500 ml @ 999 mls/hr IV.SIG BOLUS ONE Rx#: [id number] Result Diagrams: 05/17/18 08:55 Objective Remarks: GENERAL: Well-nourished, well-developed patient. CARDIOVASCULAR: Regular rate and rhythm without murmurs, gallops, or rubs. RESPIRATORY: Breath sounds equal bilaterally. No accessory muscle use. ABDOMEN/GI: Abdomen soft, non-tender. Fundus: Firm, non-tender at umbilicus. GENITOURINARY: Light to moderate bleeding. EXTREMITIES: No cyanosis or edema, non-tender, without signs of DVT. Medications and IVs: Active Medications Acetaminophen (Tylenol) 650 mg PO Q4H PRN PRN Reason: PAIN SCALE 1 TO 2 Al Hydroxide/Mg Hydroxide (Milk Of Magnesia Liq) 30 ml PO Q12H PRN PRN Reason: Mild Constipation Benzocaine (Americaine 20% [place]) 1 spray TOPICAL Q4H PRN PRN Reason: For Perineum Discomfort Bisacodyl (Dulcolax Supp) 10 mg RECTAL DAILY PRN PRN Reason: SEVERE CONSITIPATION Oxytocin (Pitocin 30 Units/Ns 500 Ml Premix) 30 units in 500 mls @ 100 mls/hr IV.CONT UNSCH PRN PRN Reason: Heavy bleeding Last Admin: 05/17/18 11:54 Dose: 100 mls/hr Ibuprofen (Motrin) 800 mg PO Q8H PRN PRN Reason: For Cramping Last Admin: 05/18/18 05:47 Dose: 800 mg Lactulose (Lactulose Liq) 30 ml PO DAILY PRN PRN Reason: SEVERE CONSITIPATION Naloxone HCl (Narcan Inj) 0.1 mg IV.PUSH Q2M PRN PRN Reason: for opiate reversal Ondansetron HCl (Zofran Odt) 4 mg PO Q6H PRN PRN Reason: NAUSEA OR VOMITING Senna/Docusate Sodium (Sheba-Colace) 1 tab PO BID FRANCIS Last Admin: 05/17/18 22:04 Dose: 1 tab Sennosides (Senokot) 17.2 mg PO Q12H PRN PRN Reason: Moderate Constipation Sodium Chloride (Ns Flush) 2 ml IV.FLUSH BID [facility] Last Admin: 05/17/18 22:04 Dose: 2 ml Sodium Chloride (Ns Flush) 2 ml IV.FLUSH PRN PRN PRN Reason: FLUSH AFTER USING IV ACCESS Witch Karlene/Glycerin (Tucks Pads) 1 applicatio RECTAL QID PRN PRN Reason: HEMORRHOIDS Zolpidem Tartrate (Ambien) 5 mg PO HS PRN PRN Reason: SLEEP Assessment and Plan - Diagnosis (1) Third trimester Code(s): Z34.93 - Encounter for supervision of normal , unspecified, third trimester Status: Acute - Plan 28 yr delivered on 05/17/2018 at 10:59 AM. Normal vaginal delivery. Recovering well. Plan: Continue routine post care. Can be discharged home today 05/18/2018, after 5 PM. VS reviewed at goal. - Attending Attestation The exam, history, and the medical decision-making described in the above note were completed with the assistance of the fellow physician. I reviewed and agree with the findings presented. I attest that I had a [id number] encounter with the patient on the same day, and personally performed and documented my assessment and findings in the medical record. Doing well today, lochia decreased, ambulating, urinating, pain well controlled , no fever. breast feeding. uterus firm below umbilicus, RRR, CTAB, no c/c/e no ttp calves GBS negative, if baby can be discharged today she can as well, if baby stays then she will stay until tomorrow.
[2018-05-18] MEDS: Senna/Docusate Sodium 8.6/50 MG Tablet PO SCH (09:45)
== END 2018-05-18 17:05 | disposition home or self-care (01) ==
LOC: HOBED 07:56 → H2E 09:53 → H1EA 10:00
PROVIDERS: ADMIT Family Medicine; ATTEND Family Medicine